=== PATIENT | male | born 1965 | race Caucasian/White ===

== ENCOUNTER 2016-11-22 07:30 | Inpatient (IN) | payer BC ==
[~2016-11-22] VITALS: Ht 182.9 cm; Wt 77.1 kg
--- NOTE | ~2016-11-22 | EKG ---
[facility] [employer] [place] [address] ELECTROCARDIOGRAM REPORT Name: SORAIDA CORNEJO Zelda Room #: REG [facility]#: [id number] Admission: 11/22/16 Attend Phys: Discharge: Date of : 65 Report #: [id number] THIS REPORT FOR: //name// [facility] ED Test Date: 2016-11-22 Test Time: 08:06:37 Pat Name: SORAIDA CORNEJO Department: Room: Gender: [employer]: : 1965 Requested By: James Dang Order Number: [id number] MD: Jaxson Ty Measurements Intervals Camilla Rate: 79 P: 87 WA: 139 QRS: 50 QRSD: 95 T: 71 QT: 360 QTc: 413 Interpretive Statements Sinus rhythm Biatrial enlargement Abnormal R-wave progression, early transition Compared to ECG 05/06/2015 19:41:48 No significant changes Electronically Signed On 11-22-2016 8:47:31 CDT by Jaxson Ty [email or web address] <ELECTRONICALLY SIGNED> By: Jaxson Ty MD, [facility] 11/22/16 [id number] Jaxson Ty MD, FACC /EPI
[2016-11-22 07:30] VITALS: BP 125/99
[~2016-11-22 07:30] MED LIST: ALBUTEROL INH INH; ASPIRIN EC81 M1 PO; BENADRYL25 MG PO; CIPRO500 MG PO; FLONASE; LYRICA100 MG PO; METANX TABLET1 EAC1 PO; MULTI VITAMIN1 EACH PO; OMEPRAZOLE40 MG PO; PAXIL10 MG; PEPCID20 MG PO; PEPCID40 MG PO; PREDNISONE 20 M20 MG PO; REMERON15 MG PO; SEROQUEL 12.512.5 MG PO; SYMBICORT160 MCG/4.; SYMBICORT80 MCG/4.1 INH; TRANSDERM-SCO1 PATC1; XANAX 0.25 MG0.25 MG PO; ZOLOFT50 MG PO; [UNRECOGNIZED DRUG - OTHER] PO
[2016-11-22 08:08] LABS: ABSOLUTE NEUTROPHILS 13.1 thou/uL (1.4-8.2); BASOPHILS 0.4 % (0.0-2.0); HEMATOCRIT 52.7 % (42.0-52.0); LYMPHOCYTES 15.6 % (24.0-44.0); MCH 31.7 pg (26.0-34.0); MCHC 34.2 g/dL (28.0-37.0); MCV 92.7 fL (80.0-100.0); MONOCYTES 11.1 % (1.0-8.0); PLATELET COUNT 220 thou/uL (150-400); POLYS 72.9 % (36.0-66.0); RBC 5.68 mil/uL (4.50-6.00); RDW 13.4 % (10.5-14.5)
[2016-11-22 08:10] LABS: MANUAL DIFF NO
[2016-11-22 08:19] LABS: ALBUMIN 5.4 g/dL (3.4-5.0); CREATININE 2.5 mg/dL (0.7-1.3); POTASSIUM 3.3 mmol/L (3.5-5.1); TOTAL BILIRUBIN 1.2 mg/dL (<0.1-1.0); TOTAL PROTEIN 9.6 g/dL (6.4-8.2); TROPONIN-I 0.04 ng/mL (<0.04-0.07)
[2016-11-22 08:35] LABS: MAGNESIUM 2.5 mg/dL (1.8-2.4); PHOSPHORUS 5.9 mg/dL (2.5-4.9)
[2016-11-22 10:15] VITALS: BP 139/79
[2016-11-22 10:35] VITALS: BP 139/105
[2016-11-22 11:58] LABS: URINE BILIRUBIN NEGATIVE (Negative); URINE BLOOD 2+ (Negative); URINE COLOR YELLOW; URINE GLUCOSE-RANDOM* NEGATIVE (Negative); URINE KETONES TRACE (Negative); URINE LEUKOCYTES-REFLEX NEGATIVE (Negative); URINE PROTEIN (DIPSTICK) 1+ (Negative); URINE SPECIFIC GRAVITY >= 1.030 (1.003-1.035); URINE UROBILINOGEN 0.2 E.U./dl (0.2-1.0)
[2016-11-22 12:06] LABS: AMP/METHAMP Negative (Negative); BARBITURATES Negative (Negative); BENZODIAZEPINES Negative (Negative); COCAINE Negative (Negative); METHADONE Negative (Negative); OPIATES Negative (Negative); PCP Negative (Negative); THC POSITIVE (Negative)
[2016-11-22 12:18] LABS: AMORPHOUS URATES Few /LPF (None Seen); HYALINE CASTS 4-10 Moderate /LPF (None Seen); SQUAMOUS None Seen /LPF (0-3); URINE RBC 3-10 Few /HPF (0-2); URINE WBC-REFLEX 0-5 Rare /HPF (0-5)
[2016-11-22 15:11] VITALS: BP 146/72
[2016-11-22 19:54] VITALS: BP 112/74
[2016-11-23 04:00] VITALS: BP 130/77
[2016-11-23 06:24] LABS: HEMATOCRIT 43.8 % (42.0-52.0); MCV 94.2 fL (80.0-100.0); RBC 4.65 mil/uL (4.50-6.00); RDW 13.4 % (10.5-14.5); WBC 10.1 thou/uL (4.0-11.0)
[2016-11-23 06:52] LABS: ALBUMIN 3.7 g/dL (3.4-5.0); POTASSIUM 3.4 mmol/L (3.5-5.1); TOTAL PROTEIN 6.7 g/dL (6.4-8.2)
[2016-11-23 06:53] LABS: CREATININE 1.1 mg/dL (0.7-1.3)
[2016-11-23 06:54] LABS: CALCIUM 8.3 mg/dL (8.5-10.1)
[2016-11-23 06:55] LABS: HEMOGLOBIN 14.9 gm/dL (14.0-18.0)
[2016-11-23 07:27] VITALS: BP 134/77
[2016-11-23 15:29] VITALS: BP 140/79
[2016-11-23 20:00] VITALS: BP 143/82
[2016-11-24] MEDS ORDERED: CHLORPROMAZINE25 M1 PO (07:40)
[2016-11-24] MEDS ORDERED: ATIVAN0.5 MG PO (07:41)
[2016-11-24] MEDS ORDERED: PEPCID20 MG PO (07:43)
[2016-11-24] MEDS ORDERED: ONDANSETRON HCL4 M1 IV PUSH (07:43)
[2016-11-24] MEDS ORDERED: NEXIUM40 MG PO (07:44)
[2016-11-24 07:52] VITALS: BP 125/80
[2016-11-24 15:17] VITALS: BP 111/67
[2016-11-24] MEDS ORDERED: CELEXA 10 MG TA10 M1 PO (15:40)
[2016-11-24 15:43] VITALS: BP 111/67
== END 2016-11-24 16:17 | disposition home or self-care (01) | DRG 897 ==
LOC: ER 07:30 → EROBS 09:01 → 4E 09:01
PROVIDERS: Emergency Medicine
DX: F12.288 Cannabis dependence with other cannabis-induced disorder (principal); N17.9 Acute kidney failure, unspecified; F41.9 Anxiety disorder, unspecified; F43.10 Post-traumatic stress disorder, unspecified; X58.XXXA Exposure to other specified factors, initial encounter; J45.909 Unspecified asthma, uncomplicated; F17.210 Nicotine dependence, cigarettes, uncomplicated; E86.0 Dehydration; E83.52 Hypercalcemia; D72.829 Elevated white blood cell count, unspecified; F42.9 Obsessive-compulsive disorder, unspecified; Z79.899 Other long term (current) drug therapy; Z91.040 Latex allergy status; Y93.89 Activity, other specified; Y92.89 Other specified places as the place of occurrence of the external cause; Y99.8 Other external cause status
CPT/HCPCS: 10183

== ENCOUNTER 2016-11-25 13:09 | Emergency (ER) | payer BC, OTHER ==
[~2016-11-25] VITALS: Ht 182.9 cm; Wt 72.6 kg
[~2016-11-25 13:09] MED LIST changes: +ATIVAN0.5 MG PO; +CELEXA 10 MG TA10 M1 PO; +CHLORPROMAZINE25 M1 PO; +NEXIUM40 MG PO; +ONDANSETRON HCL4 M1 IV PUSH
[2016-11-25 13:58] LABS: URINE BILIRUBIN NEGATIVE (Negative); URINE BLOOD NEGATIVE (Negative); URINE COLOR YELLOW; URINE GLUCOSE-RANDOM* NEGATIVE (Negative); URINE KETONES 2+ (Negative); URINE NITRITE NEGATIVE (Negative); URINE PROTEIN (DIPSTICK) TRACE (Negative); URINE SPECIFIC GRAVITY 1.015 (1.003-1.035)
[2016-11-25 14:10] LABS: ABSOLUTE NEUTROPHILS 6.5 thou/uL (1.4-8.2); BASOPHILS 0.5 % (0.0-2.0); EOSINOPHILS 0.1 % (0.0-3.0); HEMATOCRIT 40.8 % (42.0-52.0); HEMOGLOBIN 14.3 gm/dL (14.0-18.0); LYMPHOCYTES 15.2 % (24.0-44.0); MANUAL DIFF NO; MCH 32.1 pg (26.0-34.0); MCHC 34.9 g/dL (28.0-37.0); MCV 91.8 fL (80.0-100.0); MONOCYTES 6.6 % (1.0-8.0); PLATELET COUNT 157 thou/uL (150-400); POLYS 77.6 % (36.0-66.0); RBC 4.45 mil/uL (4.50-6.00); WBC 8.3 thou/uL (4.0-11.0)
[2016-11-25 14:19] LABS: CALCIUM 8.9 mg/dL (8.5-10.1); CREATININE 0.9 mg/dL (0.7-1.3); POTASSIUM 3.3 mmol/L (3.5-5.1)
== END 2016-11-25 16:14 | disposition home or self-care (01) ==
LOC: ER 13:09
PROVIDERS: Nurse Practitioner Family
DX: F41.9 Anxiety disorder, unspecified (principal); E78.00 Pure hypercholesterolemia, unspecified; J45.909 Unspecified asthma, uncomplicated; F17.210 Nicotine dependence, cigarettes, uncomplicated; F12.10 Cannabis abuse, uncomplicated; Z91.040 Latex allergy status